=== PATIENT | male | born 1930 | race Caucasian/White ===

== ENCOUNTER 2017-06-01 19:38 | Inpatient (IN) | payer MEDICARE ==
[~2017-06-01] VITALS: Ht 165.1 cm; Wt 74.9 kg
--- NOTE | 2017-06-02 00:26 | NUR ---
PT ADMITTED TO ROOM 120 FROM ED @ 2346. ARRIVED VIA STRETCHER, UNABLE TO ASSIST STAFF IN MOVING FROM STRECHER TO BED. EXPRESSIVE APHASIA, UNABLE TO DETERMINE IF HE HEARS STAFF, OR UNDERSTANDS. WHEN ASKED TO STICK HIS TONGUE OUT, HE DOESN'T, BUT SMILES AND ASKS STAFF A QUESTION THAT ISN'T RELEVANT TO THE CURRENT CONVERSATION. THE SMILE IS EVEN. WHEN ASKING PT TO RIDING COACH HAND, HE WILL SL RIDING COACH WITH THE LT HAND, WHILE THE RIGHT DOESN'T ATTMEPT. ABLE TO HOLD THE LT ARM AND LEG FOR 3 SEC, THIS NURSE RAISED BOTH AND TOLD HIM TO HOLD THEM UP AND HE DID. THE RIGHT SIDE, HE WAS UNABLE TO LIFT R ARM ON COMMAND, AND EVEN WITH THIS NURSE RAISING, AND LETTING GO THE ARM QUICKLY COMES DOWN WITH NO CONTROL. THE RIGHT LEG HAS BETTER CONTROL, DID NOT COME TO THE BED QUICK THE ARM. PT ACTUALLY LIFTED THE RIGHT LEG WHEN THIS NURSE PUT BOOTIES UNDER HIS HEELS. NOTED NO BRUSING ON BACK SIDE, TOE NAILS THICK AND IN NEED OF TRIM. IV IN LAC INFUSING LR @ 100. ASSESSING LUNG SOUNDS, PT DID NOT TAKE DEEP BREATHS BUT WHEN HE TOOK A BREATH, LUNG SOUNDS CLEAR. BOWELS HYPOACTIVE, UNABLE TO DETERMINE LAST BM. WHILE IN THE ED, THE RN-JOLIE REPORTED PRIOR TO PT ARRIVING, THAT THEY STRAIGHT CATH PT FOR 500, WELL ONE INCONT URINE. WILL USE THE BED ALARM IT IS UNKNOWN IF PT WILL ATTEMPT TO GET UP WITHOUT STAFF PRESENT.
--- NOTE | 2017-06-02 03:30 | NUR ---
PT ATTEMPTED TO TOUCH MY HAND WITH HIS RIGHT HAND, ABLE TO LIFT ARM BUT WASN'T ABLE TO TOUCH HAND. LIFTED RIGHT FOOT OFF BED SO THE HEEL PROTECTOR COULD BE PUT BACK ON. SPEECH REMAINS UNCHANGED, TALKS IN SENTENCE BUT NOT RELEVANT OR ABLE ANSWER QUESTIONS OR FOLLOW COMMANDS. NO FACIAL DROOP NOTED.
[2017-06-02] MEDS ORDERED: OMEPRAZOLE20 MG PO (04:36)
[2017-06-02] MEDS ORDERED: METOPROLOL TAR100 MG PO (04:39)
[2017-06-02] MEDS ORDERED: COUMADIN5 MG PO (04:39)
[2017-06-02] MEDS ORDERED: PAROXETINE HCL20 MG PO (04:40)
[2017-06-02] MEDS ORDERED: SIMVASTATIN20 MG PO (04:40)
[2017-06-02] MEDS ORDERED: OXYBUTYNIN CHLOR5 M1 PO (04:42)
[2017-06-02] MEDS ORDERED: NORVASC5 MG PO (04:43)
--- NOTE | 2017-06-02 04:44 | NUR ---
PT WITH EYES CLOSED, RESP EVEN AND UNLABORED. HAS BEEN THIS WAY FOR THE PAST 1.5 HOURS. IV CONTINUES INFUSING PER ORDER.
--- NOTE | 2017-06-02 06:46 | NUR ---
NOTIFIED DR BALTAZAR OF PT NOT VOIDING, BLADDER SCAN FOR 360, THAT HE SLEPT AFTER ADMISSION. "GIVE HIM MORE TIME". PT CURRENTLY WITH EYES CLOSED, RESP EVEN AND UNLABORED.
--- NOTE | 2017-06-02 09:00 | NUR ---
PATIENT HAS BEEN RESTING QUIETLY. INCONTINENT URINE AND ATTENDS CHANGED AND PERICARE DONE. IV FLUSHES WELL AND INFUSING. BOWEL TONES ACTIVEX4, LUNGS CLEAR, GENERALIZED WEAKNESS, BUT MORE SO FROM PREVIOUS STROKE, RIGHT SIDE ALREADY HAS DEFICITS. PATIENT SOMETIMES NONE VERBAL, OTHER TIMES WORD SALAD OR HE JUST SAYS "YEAH." DOES NOT FOLLOW COMMANDS AT THIS TIME.
--- NOTE | 2017-06-02 11:21 | NUR ---
THIS INSPECTOR EYEGLASS AND RN CHANGED PATIENT INTO CLEAN ATTENDS. PATIENT IS VERY QUITE. PATIENT NOW SITTING UP IN BED WATCHING TV. CALL LIGHT WITHIN REACH. NO OTHER NEEDS AT THIS TIME.
[2017-06-02] MEDS ORDERED: METOPROLOL SUC100 MG PO (11:28)
--- NOTE | 2017-06-02 13:05 | NUR ---
MED REC COMPLETE WITH SAFEWAY REFILL HISTORY AND DR BARTON CONFIRMATION OF WARFARIN DOSE. NO KNOWN LAST INR.
--- NOTE | 2017-06-02 13:15 | NUR ---
PATIENT SITTING UP IN BED. RN IN ROOM. RN STATES THAT HIM AND OTHER RN CHANGED PATIENT INTO CLEAN ATTENDS. PATIENT NOW RESTING IN BED WATCHING TV. CALL LIGHT WITHIN REACH. NO OTHER NEEDS AT THIS TIME. THIS PROGRAM PROJECT ANALYST AND RN REPOSITIONED PATIENT ONTO RIGHT SIDE.
--- NOTE | 2017-06-02 18:11 | NUR ---
BEDSIDE NURSING SWALLOW EVALUATION DONE. PATIENT DOES WELL WITH THIN LIQUIDS, NO COUGHING, A BIT OF HESITATION BEFORE SWALLOW. DR. BALTAZAR NOTIFIED AND PATIENT AVANCED TO CLEAR LIQUID DIET.
--- NOTE | 2017-06-02 18:19 | NUR ---
THIS BUSINESS STRATEGIST AND BUSINESS STRATEGIST ZANA ASSISTED PATIENT INTO CLEAN ATTENDS. PATIENT NOW RESTING IN BED. PATIENT HAS A VISITOR IN ROOM. CALL LIGHT WITHIN REACH. NO OTHER NEEDS AT THIS TIME.
--- NOTE | 2017-06-02 19:00 | NUR ---
PATIENT MORE RESPONSIVE IN THE AFTERNOON. WHEN TURNING TO CHANGE PATIENT ATTENDS DUE TO INCONTINENCE PATIENT IS NOW ASSISTING WHEN GIVEN INSTRUCTIONS WHERE THIS AM HE WAS NOT. PATIENT SEEN BY OT AND PT TODAY PATIENT UNABLE TO STAND. PATIENT NPO IN AM. PATIENT HAS HAD PLENTY OF URINE OUTPUT BUT REMAINS INCONTINENT HE CANNOT CALL FOR ASSISTANCE. BED ALARM ON, BUT HAVE NOT SEEN PATIENT TRY TO GET OUT OF BED. PATIENT NOW ON A CLEAR LIQUID DIET.
--- NOTE | 2017-06-02 19:18 | NUR ---
RECEIVED REPORT FROM RN, PATIENT IS RESTING COMFORTABLY IN BED, BREATHING IS EVEN AND UNLABORED. FLACC SCORE OF 0. CALL LIGHT WITHIN REACH.
--- NOTE | 2017-06-02 21:44 | NUR ---
PATIENT RESTING IN BED, BREATHING IS EVEN AND UNLABORED. ASSESSMENT DONE. FLACC SCORE OF 0. CALL LIGHT WITHIN REACH, BED ALARM ON.
--- NOTE | 2017-06-02 22:42 | NUR ---
PATIENT RESTING IN BED, BREATHING IS EVEN AND UNLABORED. UNABLE TO ASSESS FOR NEEDS DUE TO INAPPROPRIATE VERBAL RESPONSES, FLACC SCORE OF 0. HEART RATE IS 66 ON TELE. CALL LIGHT WITHIN REACH, BED ALARM ON.
--- NOTE | 2017-06-02 23:11 | NUR ---
PATIENT REPOSITIONED AND LINENS CHANGED DUE TO INCONTINENCE OF URINE. ONCE PATIENT REPOSITIONED, PATIENT STATES "OH THAT'S NICE." CALL LIGHT WITHIN REACH, BED ALARM ON.
--- NOTE | 2017-06-03 00:07 | NUR ---
CHUCK HOWARD AND I CHANGED PATIENT'S GOWN AND BED LINEN SOAK WITH VOIDINGS.
--- NOTE | 2017-06-03 03:11 | NUR ---
PATIENT RESTING IN BED, BREATHING IS EVEN AND UNLABORED. CALL LIGHT WITHIN REACH.
--- NOTE | 2017-06-03 03:33 | NUR ---
PT WITH EYES CLOSED, RESP EVEN AND UNLABORED. HUNG NEW BAG OF IV FLUIDS AT THIS TIME.
--- NOTE | 2017-06-03 03:36 | NUR ---
CHUCK MILLER AND I CHANGED PATIENT'S ATTENDS AND REPOSITIONED. BED ALARM ON. CALL LIGHT WITHIN REACH.
--- NOTE | 2017-06-03 06:47 | NUR ---
PATIENT RESTING IN BED, BREATHING IS EVEN AND UNLABORED. REPOSITIONED, ATTENDS CHANGED. CALL LIGHT WITHIN REACH, BED ALARM ON.
--- NOTE | 2017-06-03 07:33 | EKG ---
[facility] [address] [facility] [place] [address] N[address] and T wave abnormality Prolonged QT Abnormal ECG No previous ECGs available Confirmed by NICOLE BALTAZAR MD ([id number]) on 06/03/2017 7:33:21 AM Electronically Signed By: NICOLE BALTAZAR MD 06/03/17 0733 PATIENT NAME: NICOLASA CHRISTOPHER Electrocardiogram DATE OF : 32 PHYSICIAN: NICOLE BALTAZAR MD REPORT #: [id number] REPORT IS CONFIDENTIAL AND NOT TO BE RELEASED WITHOUT AUTHORIZATION
--- NOTE | 2017-06-03 08:05 | NUR ---
PATIENT RESTING IN BED. WASHCLOTH FOR FACE. THIS SIEBEL ADMINISTRATOR SET UP BREAKFAST FOR PATIENT. PATIENT SEEMS MORE TALKATIVE AND NOT JUST ANSWERING YES OR NO. CALL LIGHT WITHIN REACH. NO OTHER NEEDS AT THIS TIME.
--- NOTE | 2017-06-03 10:01 | NUR ---
PT WAS UPRIGHT IN BED WITH OT MARCELINO AND NSG STUDENT PRESENT UPON ST ARRIVAL. HIS BREAKFAST TRAY (CLEAR LIQUIDS ONLY) ORDERED WAS BEING HELD UNTIL SWALLOW ASSESSMENT COULD BE COMPLETED. NICOLASA PRESENTED NONVERBAL AT TIME OF ASSESMENT BUT REPROTEDLY HAS BEEN SPEAKING SINGLE WORDS OCCASIONALLY. PT REFUSED ALL ASSESMENT ATTEMPTS AND REFUSED ALL PO TRIALS: WATER, MILK, SODA, JUICE, TEA, PUDDING, APPLESAUCE. HE ALSO REFUSED ALL ATTEMPTS FOR ORAL MECH EXAM OR COG OR LANGUAGE EVAL. ASSESSMENT TO BE ATTEMPTED AT ANOTHER TIME.
--- NOTE | 2017-06-03 10:04 | NUR ---
THIS BANK COMPLIANCE OFFICER AND STUDENT NURSE CHANGED PATIENT INTO CLEAN ATTENDS. PATIENT REFUSED BREAKFAST. STUDENT NURSE NOTICED IV ON LEFT ARM COMING OFF. RN CHANDAN NOTIFIED. CALL LIGHT WITHIN REACH. NO OTHER NEEDS AT THIS TIME.
--- NOTE | 2017-06-03 10:05 | NUR ---
PATIENT STILL ASLEEP IN THE AM. PATIENT STILL ALMOST COMPLETELY NONVERBAL AT THIS TIME. HE WILL SAY YEAH AT TIMES. TURNED Q2/HRS. PATIENT REMAINS INCONTINENT OF URINE AND OF COURSE HE CANNOT CALL SO ATTENDS CHECK FREQUENTLY. PERIAREA IS REDDEND DUE TO INCONTINENCE AND BARRIER CREAM IS BEING APPLIED. COXXYX IS REDDEND BUT BLANCHABLE. DRESSING CAME LOOSE FROM LAC IV AND IV DC'D AND NEW IV STARTED IN THE RAC.
--- NOTE | 2017-06-03 10:41 | NUR ---
PT TOOK ASPIRIN CRUSHED IN APPLESAUCE. SL FOR SHOWER WITH WENDIE SANCHEZ AND [facility] STUDENT.
--- NOTE | 2017-06-03 11:55 | NUR ---
THIS ASSISTANT DIRECTOR OF FINANCIAL AID AND STUDENT NURSE SET UP SHOWER FOR PATIENT AND ASSISTED PATIENT INTO SHOWER. TRANSFERRED PATIENT 2 PERSON HEIDI INTO SHOWER CHAIR. PATIENT ABLE TO SIT UP AND SIT FORWARD WHEN ASKED. 2 PERSON ASSIST SHOWER AND THIS ASSISTANT DIRECTOR OF FINANCIAL AID SHAVED PATIENTS FACE. STUDENT NURSE CHANGED LINEN. PATIENT IS NOW SITTING UP IN BED EATING LUNCH. PATIENT TALKING AND ANSWERING QUESTIONS. CLEAN ATTENDS ON PATIENT AND CLEAN GOWN. CALL LIGHT WITHIN REACH. NO OTHER NEEDS AT THIS TIME.
--- NOTE | 2017-06-03 13:17 | NUR ---
THIS THERAPY ASSISTANT AND STUDENT NURSE CHANGED PATIENT INTO CLEAN ATTENDS. PATIENT ALSO REPOSITIONED ONTO LEFT SIDE. PATIENT SITTING UP BED WATCHING TV. STUDENT NURSE STATES SHE GOT PATIENT FRESH WATER AND APPLE JUICE. CALL LIGHT WITHIN REACH. NO OTHER NEEDS AT THIS TIME.
--- NOTE | 2017-06-03 16:50 | NUR ---
THIS OUTSIDE CONTRACTOR SALES AND RN ANNIA CHANGED PATIENT INTO CLEAN ATTENDS. PATIENT REPOSITIONED ONTO LEFT SIDE. CALL LIGHT WITHIN REACH. NO OTHER NEEDS AT THIS TIME.
--- NOTE | 2017-06-03 16:55 | NUR ---
PATIENT REMAINS HAVING UNINTELLIGABLE SPEECH MUCH OF THE TIME. PATIENT DOES ANSWER YES OR NO APPROPRIATELY MOST OF THE TIME OR WILL NOD OR SHAKE HIS HEAD TO YES OR NO QUESTIONS. LAC IV DC'D TODAY DUE TO DRESSING COMING OFF AND RAC IV STARTED AND IV FLUIDS CONTINUE AT 100MLS/HR. HEIDI USED TO PLACE PATIENT IN WHEELED SHOWER CHAIR TODAY AND PATIENT WAS SHOWERED. PATIENT TURNED Q2 HRS AND MONITORED CLOSELY FOR INCONTINENCE. BARRIER CREAM APPLIED TO PERIAREA AND COCCYX THROUGHOUT THE DAY AND PERIAREA AND COCCYX NOT RED THIS AM. PATIENT STARTED ON PO COUMADIN TODAY. PATIENT SPIT THEM OUT AT FIRST BUT FINAL TOOK THEM WITH SOME PUDDING. MEDS CAN BE CRUSHED IF NEED BE PER . PATIENT ADVANCED TO A FULL LIQUID DIET AND IS EATING WELL AND TAKING PO FLUIDS WELL. PATIENT DID GET UPSET TODAY WHEN DAUGHTER WAS TALKING TO RESIDENT CARE TECHNICIAN ABOUT EXPENSES FOR [place], BUT RETURN BACK TO A CALM MOOD WHEN RESIDENT CARE TECHNICIAN LEFT. PATIENT MUCH MORE CONVERSIVE WITH HIS DAUGHTER AND DAUGHTERS BOYFRIEND EVEN THOUGH WHAT HE IS SAYING DOESN'T USUALLY MAKE ANY SENSE.
--- NOTE | 2017-06-03 18:58 | NUR ---
THIS GROUND CREWMAN AND RN PARIS CHANGED PATIENT INTO CLEAN ATTENDS. BARRIER CREAM APPLIED TO BOTTOM. CALL LIGHT WITHIN REACH. NO OTHER NEEDS AT THIS TIME.
--- NOTE | 2017-06-03 19:20 | NUR ---
RECEIVED REPORT FROM RN. PATIENT RESTING COMFORTABLY IN BED, BREATHING IS EVEN AND UNLABORED, FLACC SCORE OF 0. CALL LIGHT WITHIN REACH, BED ALARM ON.
--- NOTE | 2017-06-03 22:20 | NUR ---
PATIENT RESTING IN BED, BREATHING IS EVEN AND UNLABORED. DENIES PAIN. FLACC SCORE OF 0. CALL LIGHT WITHIN REACH, BED ALARM ON.
--- NOTE | 2017-06-03 23:55 | NUR ---
CALLED DR. BALTAZAR TO REPORT THAT PT HAD 20 BEATS OF V-TACH WITH A RATE OF 100, QRS WAS WIDE: 0.2, PT DENIED ANY DISCOMFORT WHEN CHECKED ON BY ENTERTAINMENT REPORTER. PT DID NOT HAVE CHEMISTRY LABS THIS MORNING, BUT ON 06/02 POTASSIUM WAS 3.3. ALSO CLARIFIED CODE STATUS WITH HER, RECEIVED ORDERS TO ADD DNR/DNI TO PT'S CHART.
--- NOTE | 2017-06-04 00:22 | NUR ---
PATIENT RESTING IN BED, BREATHING IS EVEN AND UNLABORED. CALL LIGHT WITHIN REACH, BED ALARM ON.
--- NOTE | 2017-06-04 00:56 | NUR ---
PATIENT REPOSITIONED FOR COMFORT, ATTENDS CHANGED. NOW RESTING COMFORTABLY AGAIN. BREATHING IS EVEN AND UNLABORED. CALL LIGHT WITHIN REACH, BED ALARM ON.
--- NOTE | 2017-06-04 03:42 | NUR ---
PATIENT RESTING COMFORTABLY IN BED, BREATHING IS EVEN AND UNLABORED. FLACC SCORE OF 0. CALL LIGHT WITHIN REACH, BED ALARM ON.
--- NOTE | 2017-06-04 06:40 | NUR ---
PATIENT RESTING IN BED, BREATHING IS EVEN AND UNLABORED. CALL LIGHT WITHIN REACH, BED ALARM ON. FLACC SCORE OF 0.
--- NOTE | 2017-06-04 09:23 | NUR ---
PT WAS INCONTINENT OF URINE, PT WAS CHANGED AND REPOSITIONED HIGHER IN BED. PT DID NOT NEED ANYTHING ELSE AT THE MOMENT
[2017-06-04] MEDS ORDERED: ASPIRIN325 MG PO (10:55)
--- NOTE | 2017-06-04 13:30 | NUR ---
PT SITTING IN CHAIR, JUST STARING QUIETLY. HE WELCOMED ME INTO HIS RM, RESPONSES TO MY QUESTIONS SLOW AND DELIBERATE. HE DID MENTIONED THAT MEALS SERE "OK". FRIENDLY, SHOOK MY HAND AND HELD ON. HE SEEMED TO ENJOY THE COMPANY. EXTENDED A BLESSING PT THANKED ME, WILL FOLLOW NEEDED
--- NOTE | 2017-06-04 14:59 | NUR ---
PT WAS INCONTINENT OF URINE AND STOOL WAS CHANGED AND DRESSED AND WAS TRANSFERED TO A WHEELCHAIR AND WAS DISCHARGED TO [facility]
--- NOTE | 2017-06-04 16:11 | NUR ---
POTASSIUM LEVEL 2.8 L, NO REPLACEMENTS PROVIDED WHILE PATIENT ADMITTED. DISCUSSED WITH DR. DILLON WHO STATES " POTASSIUM IS LOW BECAUSE PATIENT WAS NOT EATING, NOW THAT HE IS EATING IT SHOULD GO UP TO NORMAL RANGE". CALL TO PATRICIA AND JORGE LUIS GROVER RN, WHO VERBALIZED UNDERSTANDING.
== END 2017-06-04 14:45 | DRG 65 ==
LOC: ED 19:38 → MS 23:16
PROVIDERS: ADMIT Internal Medicine
DX: I63.9 Cerebral infarction, unspecified (principal); M62.82 Rhabdomyolysis; I69.954 Hemiplegia and hemiparesis following unspecified cerebrovascular disease affecting left non-dominant side; R47.01 Aphasia; R29.717 NIHSS score 17; I48.2 Chronic atrial fibrillation; I69.998 Other sequelae following unspecified cerebrovascular disease; M21.372 Foot drop, left foot; Z66 Do not resuscitate; Z95.3 Presence of xenogenic heart valve; Z79.01 Long term (current) use of anticoagulants; Z79.899 Other long term (current) drug therapy
CPT/HCPCS: 36415; 70450; 71045; 80048; 80053; 82550; 83735; 83874; 84484; 85025; 85610; 85730; 92523; 93005; 93010; 93306; 94762; 97116; 97140; 97163; 97165; 97530; 97535; J1650; J7030

== ENCOUNTER 2018-02-13 18:57 | Observation (INO) | payer MEDICARE ==
[~2018-02-13] VITALS: Ht 165.1 cm; Wt 77.0 kg
[~2018-02-13 18:57] MED LIST: ASPIRIN325 MG PO; COUMADIN5 MG PO; METOPROLOL SUC100 MG PO; METOPROLOL TAR100 MG PO; NORVASC5 MG PO; OMEPRAZOLE20 MG PO; OXYBUTYNIN CHLOR5 M1 PO; PAROXETINE HCL20 MG PO; SIMVASTATIN20 MG PO
--- OUTSIDE RECORDS SUMMARY | 2018-02-13 19:00 | XMS ---
PreManage Notification: NICOLASA CHRISTOPHER Security Boarding [employer] Cook Events No recent Security Events currently on file CRITERIA MET - [facility] - Has Care Guidelines - [facility] PHONE: Unknown TEJAS BROWN Primary Care [facility] [place] PHONE: Unknown BILLY SPEAR Primary Care Current PHONE: Unknown Guidelines Source: [facility] Guidelines Date: 10/08/2017 Care Coordination: PATIENT IS UNDER SERVICES AT [facility] DEPARTMENT.\T\nbsp; IF PATIENT IS SEEN IN THE ED, PLEASE NOTIFY THEM AT [phone].\T\nbsp; IF AFTER HOURS OR ON WEEKENDS PLEASE CALL SWITCHBOARD AT [phone] AND HAVE ON-CALL RN NOTIFIED. [place] VISIT COUNT (12 MO.) 2 [facility] TOTAL 2 NOTE: Visits indicate total known visits. ED/UCC VISIT TRACKING (12 MO.) 02/13/2018 18:57 [facility] [place] TYPE: Emergency COMPLAINT: - WEAKNESS 06/01/2017 19:[address] [facility] [place] TYPE: Emergency COMPLAINT: - POSS STROKE INPATIENT VISIT TRACKING (12 MO.) No inpatient visits to display in this time frame [email or web address]
[2018-02-13] MEDS ORDERED: XARELTO10 MG PO ×2 (19:13→19:14)
[2018-02-13] MEDS ORDERED: ANIMAL CHEWS1 EACH PO (21:41)
[2018-02-13] MEDS ORDERED: PROBIOTIC1 EAC7 PO (21:41)
[2018-02-13] MEDS ORDERED: CALCIUM500 M1 PO (21:42)
--- NOTE | 2018-02-13 22:12 | NUR ---
2130 - Pt admitted to room 122 from ED via stretcher. oriented to room. Quiet, able to answer yes/no questions better, standing rock. answer to admit questions obtained from daughter. Cooperative. on room air.
--- NOTE | 2018-02-13 22:45 | NUR ---
PATIENT IS RESTING SOUNDLY IN THE BED. HE RESPONDS TO HIS NAME AND WILL ANSWER YES/NO QUESTIONS OCCATIONALLY. PATIENT DOES NOT FOLLOW COMMANDS TO TAKE DEEP BREATHS OR REPORT PAIN/DISCOMFORT. LUNG SOUND ARE CORSE IN THE BASES, BREATHING SHALLOW. O2 SAT WNL ON ROOM AIR. ABD IS FIRM, BOWEL SOUNDS HYPOACTIVE. DOES NOT APPEAR TENDER. PATIENT'S ATTENDS SATURATED WITH URINE, CNAS ASSIST IN CHANGING ATTEND AND APPLYING BARRIER CREAM. PATIENT'S BUTTOCKS IS RED BUT BLANCHABLE. SKIN IS GROSSLY INTACT. ABRASION NOTED ON PATIENT'S NOSE, WHICH IS COVERED WITH A BANDAID. IV SITE WNL, IV FLUIDS INFUSING. PATIENT'S EXTREMITIES ARE VERY STIFF AND PATIENT DOES NOT FOLLOW COMMANDS TO MOVE THEM OR BEND WHEN NEEDED. WHEN MOVED PATIENT DOES NOT APPEAR PAINFUL. PATIENT TURNED TO RIGHT SIDE. HOB ELEVATED. BED ALARM ON. CALL LIGHT IN REACH.
--- NOTE | 2018-02-14 00:45 | NUR ---
PATIENT'S ATTENDS SATURATED WITH URINE. VICENTE CARE PERFORMED, BARRIER CREAM APPLIED. PATIENT TURNED TO LEFT SIDE. HOB ELEVATED. OFFERED PATIENT WATER, WHICH HE WAS ABLE TO DRINK 150MLS WITH ASSISTANCE. BED ALARM ON. CALL LIGHT IN REACH. PATIENT APPEARS COMFORTABLE.
--- NOTE | 2018-02-14 01:00 | NUR ---
PATIENT'S ATTENDS HEAVILY SATURATED. VICENTE CARE PERFORMED. BARRIER CREAM APPLIED. PATIENT TURNED TO LEFT SIDE. HOB ELEVATED. PATIENT DRANK 3-4 SIPS OF WATER WITH ASSISTANCE. IV FLUIDS PER ORDER, SITE WNL. CALL LIGHT IN REACH. BED ALARM ON.
--- NOTE | 2018-02-14 03:00 | NUR ---
PATIENT ATTENDS WET WITH MODERATE AMOUNT OF URINE. VICENTE CARE PERFORMED. BARRIER CREAM APPLIED. PATIENT TURNED TO LEFT SIDE. SIPS OF WATER PROVIDED. IV FLUIDS PER ORDER, SITE WNL. PATIENT SPEAKING MORE, BUT MOSTLY UNABLE TO UNDERSTAND. BANDAID ON PATIENT'S NOSE REMOVED. WOUND CLEANED, OB SITE APPLIED. BED ALARM ON. CALL LIGHT IN REACH.
--- NOTE | 2018-02-14 05:30 | NUR ---
CNAS ASSISTED TO CHANGE PATIENT'S ATTENDS AND REPOSITION PATIENT.
--- NOTE | 2018-02-14 06:16 | NUR ---
PATIENT SLEPT SINCE ARRIVAL. OCCATIONAL GARBLED VERBAL RESPONCES, CAN ANSWER YES/NO QUESTIONS. PATIENT HAS NOT BEEN OUT OF BED, EXTREMITIES ARE VERY STIFF. TURN Q2H, RED AREA ON BUTTOCKS. URINE OUTPUT QS, INCONTINENT AT BASELINE. IV FLUIDS PER ORDER. PATIENT TOLERATING SIPS OF WATER WITH ASSISTANCE. PATIENT REQUIRES FULL FEEDING ASSIST AT BASELINE. 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 TOLERATING ROOM AIR. BED ALARM. PATIENT HAS NOT ATTEMPTED TO GET OUT OF BED.
--- NOTE | 2018-02-14 06:45 | NUR ---
ORANGE PICKING SUPERVISOR STARTED NEW BAG OF FLUIDS. IV SITE WNL. PATIENT APPEARS TO BE SLEEPING. RR 18.
--- NOTE | 2018-02-14 08:22 | NUR ---
BEDSIDE REPORT RECEIVED FROM SEBAS WOODS. ALL QUESTIONS ANSWERED. PATIENT HAS VERY GARBLED SPEECH. UNINTELLIGABLE. LR INFUSING AT 125. ENSURE PROVIDED FOR BREAKFAST. PLAN TO TURN PATIENT SIDE TO SIDE IN BED TODAY.
--- NOTE | 2018-02-14 08:32 | NUR ---
PATIENT SITTING UP IN BED, RN IN ROOM. CHOCOLATE ENSURE FOR BREASKFAST. CALL LIGHT IN REACH. NO FURTHER NEEDS AT THIS TIME.
--- NOTE | 2018-02-14 09:34 | NUR ---
PATIENT IN CHAIR WATCHING TV. FRESH WATER GIVEN. LINENS CHANGED. CALL LIGHT IN REACH. NO FURTHER NEEDS AT THIS TIME.
--- NOTE | 2018-02-14 10:45 | NUR ---
PT WORKED WITH PHYSICAL THERAPY THIS MORNING. BACK TO RECLINER NOW. LUNCH ORDERED. CHAIR ALARM IN PLACE. NO NEEDS NOW. CALL LIGHT WITHIN REACH.
--- NOTE | 2018-02-14 11:29 | NUR ---
pt working with physical therapist again. going to test strength climbing stairs.
--- NOTE | 2018-02-14 13:34 | NUR ---
DAUGHTER CONCERNED ABOUT PATIENT HAVING LONGER BABBLING EPISODE. VSS. PATIENT FOUND TO BE PUTTING FORK IN MILK CARTON AND ATTEMPTING TO SPEAK TO STAFF/DAUGHTER. NO OBVIOUS CHANGE IN SPEECH FROM INITIAL ASSESSMENT. PATIENT MORE AWAKE THIS AFTERNOON. STRENGTH SAME THIS MORNING OR BETTER. PATIENT KNOWS WHO DAUGHTER IS. DR RIOS CALLED TO ASSESS PATIENT.
--- NOTE | 2018-02-14 14:22 | EKG ---
[facility] [address] [facility] [place] [address] Signed Atrial fibrillation with slow ventricular response Possible Inferior infarct , age undetermined ST \T\ T wave abnormality, consider lateral ischemia Abnormal ECG When compared with ECG of 01-JUN-2017 19:51, Borderline criteria for Inferior infarct are now present T wave inversion now evident in Lateral leads QT has shortened Confirmed by FAUSTINO RIOS DO ([id number]) on 02/14/2018 2:21:58 PM Electronically Signed By: FAUSTINO RIOS DO 02/14/18 1422 PATIENT NAME: NICOLASA CHRISTOPHER Electrocardiogram DATE OF : 32 PHYSICIAN: FAUSTINO RIOS DO REPORT #: [id number] REPORT IS CONFIDENTIAL AND NOT TO BE RELEASED WITHOUT AUTHORIZATION
--- NOTE | 2018-02-14 14:50 | NUR ---
PATIENT UP FROM CHAIR TO BED. DEPNDS CHANGED. VICENTE CARE DONE. CALL LIGHT IN REACH. FRESH WATER GIVEN. NO FURTHER NEEDS AT THIS TIME. BED ALARM ON.
--- NOTE | 2018-02-14 15:29 | NUR ---
PT IN BED NOW. HAD LARGE HARD BM REPORTED BY FOOD PRESERVATION SCIENTIST AND JIMENEZ RN. MAY CONTINUE TO HAVE BM THIS EVENING. PATIENT VERY TALKATIVE. UNINTELLIGABLE SPEECH. INCOMPREHENSIBLE. IVF INFUSING. K RIDER INFUSED.
--- NOTE | 2018-02-14 17:57 | NUR ---
PATIENT MORE ALERT AND AWAKE TODAY. RECOGNIZED DAUGHTER BUT OTHERWISE DISORIENTED. NEEDS HELP WITH SET UP FOR MEALS AND SOME SUPERVISION WITH EATING. UP TO CHAIR 1PA FWW. LR @ 125. K RIDER 20MEQ TODAY FOR POTASSIUM 3.1. ROCEPHIN. LIKELY HOME WITH FAMILY TOMORROW.
--- NOTE | 2018-02-14 18:55 | NUR ---
PATIENT IN BED WATCHING TV. FRESH WATER GIVEN. CALL LIGHT IN REACH. NO FURTHER NEEDS AT THIS TIME.
--- NOTE | 2018-02-14 19:20 | NUR ---
SHIFT REPORT RECIEVED. PATIENT APPEARS COMFORTABLE. WATCHING TV. IV FLUIDS PER ORDER, SITE WNL. ATTENDS DRY. CALL LIGHT IN REACH. BED ALARM ON.
--- NOTE | 2018-02-14 20:53 | NUR ---
CHUCK MULLEN TOOK HR BY APICAL AND MANUAL BP.
--- NOTE | 2018-02-14 21:00 | NUR ---
EVENING MEDS GIVEN PER ORDER. INSURANCE BROKER CONCERNED ABOUT ELEVATED HR READING ON VITAL MACHINE. APICAL PULSE 54, MANUAL BP DONE AND RECORDED. PLACED PATIENT ON CONTINUOUS PULSE OX TO MONITOR HR HE HAS BEEN BRADYCARDIC TODAY. PATIENT IS ABLE TO FOLLOW SIMPLE COMMANDS. LUNGS ARE CLEAR, O2 WNL. ABD IS MILDLY DISTENDED, DOESN'T APPEAR TENDER. BOWEL SOUNDS ARE ACTIVE. ATTENDS RECENTLY CHNAGED BY INSURANCE BROKER AND BARRIER CREAM APPLIED. POSITIONED PATIENT ONTO LEFT SIDE. IV FLUIDS PER ORDER, SITE WNL. ABRASION ON NOSE IS COVERED WITH AN OB SITE. PATIENT FEET SHOW SIGNS OF POOR CIRCULATION, ARSENIO COLOR AND COOL. CAP REFILL WNL BILATERALLY. PATIENT APPEARS COMFORTABLE. CALL LIGHT IN REACH. BED ALARM ON.
--- NOTE | 2018-02-14 23:00 | NUR ---
STAFF ALERTED TO PATIENT ATTEMPTING TO EXIT HIS BED BY BED ALARM. PATIENT UNABLE TO COMMUNICATE HIS NEEDS. ASSISTED PATIENT INTO THE BATHROOM WHERE HE HAD A LARGE BOWEL MOVEMENT, WITH TRACE AMOUNTS OF BRIGHT RED BLOOD. APPEARS TO BE FROM HEMORROIDS. WILL NOTIFY MD. PATIENT THEN REFUSED TO RETURN TO BED. HE APPEARS MUCH MORE ALERT BUT CONTINUES TO BE CONFUSED. HE IS ABLE TO SAY SMALL PHRASES THAT ARE CLEAR BUT NOT ORIENTED, SUCH "I CAN'T GO TO BED I HAVE WORK". UNABLE TO REORIENT PATIENT. IRRIGATIONIST ASSISTED PATIENT TO HIS RECLINER AND THEN OUT TO THE NURSES STATION TO PROVIDE A SAFE ENVIRONMENT. PATIENT REQUIRES 1:1 AT THIS TIME.
--- NOTE | 2018-02-15 00:46 | NUR ---
PATIENT BACK TO BED ABOUT 0015, HAS BEEN FREQUENTLY ATTEMPTING TO EXIT HIS BED. ENCOURAGED PATIENT TO SLEEP. POSITIONED FOR COMFORT. PROVIDED WARM BLANKET. FREQUENT REORIENTATION. BED ALARM ACTIVE.
--- NOTE | 2018-02-15 02:45 | NUR ---
PATIENT SLEEPING SOUNDLY. RR18. IV FLUIDS PER ORDER, SITE WNL. BED ALARM ON.
--- NOTE | 2018-02-15 04:45 | NUR ---
PATIENT APPEARS TO BE SLEEPING SOUNDLY. RR 16. BED ALARM ON. CALL LIGHT IN REACH.
--- NOTE | 2018-02-15 05:43 | NUR ---
PATIENT WAS MUCH MORE ALERT AND WAS ABLE TO SPEAK CLEARLY MANY TIMES. HOWEVER HE CONTINUES TO BE CONFUSED. REQUIRED 1:1 CARE FOR A SHORT TIME DURING THE NIGHT. HAS SLEPT WELL THE SECOND HALF OF THE SHIFT. IV FLUIDS PER ORDER, OUTPUT QS. PATIENT HAS LARGE BM LAST NIGHT. 1PA W/FWW. BED/CHAIR ALARM NEEDED. REQUIRES SOME FEED ASSIST.
--- NOTE | 2018-02-15 08:45 | NUR ---
PT SITTING UP IN CHAIR EATING BREAKFAST. DOING A GOOD JOB OF IT UNAIDED. ANSWERS QUESTIONS OF YES\NO EASILY. LUNGS CLEAR. DENIES CONCERNS. IVF WNL.
--- NOTE | 2018-02-15 09:34 | NUR ---
PATIENT UP TO CHAIR, 2 PERSON ASSIST FWW. LINENS CHANGED. FREASH WATER GIVEN. DEPENDS CHANGED. CALL LIGHT IN REACH. NO FURTHER NEEDS AT THIS TIME.
--- NOTE | 2018-02-15 09:43 | NUR ---
PT STOOD WITH FWW AND 2 PA TO CHANGE DEPENDS, WET. GIVEN WARM BLANKET.
[2018-02-15] MEDS ORDERED: METOPROLOL SUC100 MG PO ×4 (11:08→11:21)
[2018-02-15] MEDS ORDERED: METFORMIN HCL500 MG PO (11:10)
[2018-02-15] MEDS ORDERED: CEPHALEXIN500 MG PO (11:10)
[2018-02-15] MEDS ORDERED: BLOOD GLUCOSE1 EAC1 MISC (11:11)
[2018-02-15] MEDS ORDERED: GLUCOSE TEST S1 EACH MISC (11:12)
[2018-02-15] MEDS ORDERED: BLOOD LANCETS1 EACH SUB-Q (11:12)
--- NOTE | 2018-02-15 12:22 | NUR ---
PT ASSISTED TO GET DRESSED AND SET UP WITH LUNCH. IV REMOVED. DAUGHTER CALLED AND IS ON HER WAY UP TO GET HIM.
--- NOTE | 2018-02-15 13:10 | NUR ---
SPOKE WITH PATIENT AND DAUGHTER CHARLY IN ROOM. PATIENT LIVES WITH DAUGHTER, SHE IS MAIN CAREGIVER. DISCUSSED HOME HEALTH ORDERS FOR PT,OT/BATH AID. THEY STATE UNDERSTANDING THAT THEY WILL BE CONTACTED AT HOME TO ARRANGE TIME FOR THEM TO COME. GAVE THEM OPTIONS OF HOME HEALTH AGENCIES. THEY REQUEST [facility]. DAUGHTER STATES THEY HAVE ALL THEY NEED AT THIS TIME FOR HIS CARE, THEY HAVE A WALKER AT HOME. NO OTHER QUESTIONS OR CONCERNS.
--- NOTE | 2018-02-15 14:51 | NUR ---
CLINICALS, ORDER FAXED TO [facility] [phone]. FAX CONFIRMATION RECEIVED 02/15/18 218PM. CALLED AND SPOKE WITH GABY AT [facility], WHO STATES THEY DID RECEIVE PACKET.
== END 2018-02-15 13:10 | disposition home health service (06) ==
LOC: ED 18:57 → MS 18:58
PROVIDERS: ADMIT Student in an Organized Health Care Education/Training Program
DX: N39.0 Urinary tract infection, site not specified (principal); K59.00 Constipation, unspecified; I10 Essential (primary) hypertension; E11.65 Type 2 diabetes mellitus with hyperglycemia; I48.91 Unspecified atrial fibrillation; G93.41 Metabolic encephalopathy; I25.2 Old myocardial infarction; I69.951 Hemiplegia and hemiparesis following unspecified cerebrovascular disease affecting right dominant side; I69.920 Aphasia following unspecified cerebrovascular disease; F39 Unspecified mood [affective] disorder; F03.90 Unspecified dementia, unspecified severity, without behavioral disturbance, psychotic disturbance, mood disturbance, and anxiety; E78.5 Hyperlipidemia, unspecified; K21.9 Gastro-esophageal reflux disease without esophagitis; R39.15 Urgency of urination; Z66 Do not resuscitate; Z79.01 Long term (current) use of anticoagulants; Z79.82 Long term (current) use of aspirin; Z85.828 Personal history of other malignant neoplasm of skin; Z95.2 Presence of prosthetic heart valve; Z95.0 Presence of cardiac pacemaker; Z79.899 Other long term (current) drug therapy
CPT/HCPCS: 36415; 71045; 80048; 80053; 81001; 83036; 83735; 84484; 85025; 85610; 85730; 87088; 93005; 93010; 94762; 96361; 96365; 96366; 96374; 96375; 96376; 97163; 97166; 99285-25; G0378; J0696; J1815; J3480; J7120

== ENCOUNTER 2018-05-11 22:01 | Observation (INO) | payer MEDICARE ==
[~2018-05-11] VITALS: Ht 165.1 cm; Wt 69.9 kg
[~2018-05-11 22:01] MED LIST changes: +ANIMAL CHEWS1 EACH PO; +ASPIR-LOW81 MG PO; +BLOOD GLUCOSE1 EAC1 MISC; +BLOOD LANCETS1 EACH SUB-Q; +CALCIUM500 M1 PO; +CEPHALEXIN500 MG PO; +GLUCOSE TEST S1 EACH MISC; +METFORMIN HCL500 MG PO; +PROBIOTIC1 EAC7 PO; +TOPROL XL100 MG PO; +XARELTO10 MG PO; +XARELTO15 MG PO
--- NOTE | 2018-05-12 01:50 | NUR ---
PATIENT ARRIVED VIA STRETCHER. FULL ASSIST TO TRANSFER TO BED. PATIENT OPENS EYES TO SOUND BUT DOES NOT APPEAR TO COMPREHEND SPEECH AND HAS NO VERBAL RESPONCE. PATIENT IS STIFF IN POSTURE AND RESPONDS MINIMALLY TO PAINFUL STIMULI. BREATHING IS IRREGULAR AND SHALLOW. VS STABLE. PATIENT'S SKIN COLD TO THE TOUCH. CAP REFILL >3 SECONDS. PUPILS HAVE SLUGGISH RESPONCE TO LIGHT. PATIENT INCONTINENT OF URINE, ATTENDS IN PLACE. IV FLUIDS PER ORDER. PATIENT IN DIRECT SIGHT OF NURSES STATION FOR FRQUENT MONITORING.
--- NOTE | 2018-05-12 03:14 | NUR ---
PATIENT RESTING IN BED. APPEARS COMFORTABLE. RR 20 AND SHALLOW. PATIENT LOOKS AT RN WHEN HIS NAME IS SAID BUT DOES NOT RESPOND. IV FLUIDS PER CHAGO, ALFA WNL. ATTENDS ARE DRY. PATIENT REPOSITIONED FOR COMFORT.
--- NOTE | 2018-05-12 04:15 | NUR ---
PATIENT REPOSITIONED FOR COMFORT. PATIENT LOOKS AT STAFF BUT MAKES NO NOISE OR REACTION TO QUESTIONS. PATIENT'S ATTEND HAS NO URINE BUT SMALL BM. VICENTE CARE DONE. IV FLUIDS PER ORDER, SITE WNL.
--- NOTE | 2018-05-12 05:33 | NUR ---
QUARTZ ORIENTATOR CHANGED PATIENT'S ATTEND WHERE HE HAD ANOTHER SMALL BM BUT NO URINE OUTPUT. BLADDER SCAN FOR 200MLS. WILL CONTINUE TO MONITOR. IV FLUIDS PER ORDER.
--- NOTE | 2018-05-12 06:11 | NUR ---
SPOKE TO DR. RIOS ABOUT NO URINE OUTPUT. ORDERS FOR CHAHAL PLACEMENT RECEIVED. VERIFIED PATIENT IS TO BE ON COMFORT CARE PER POLICY.
--- NOTE | 2018-05-12 06:16 | NUR ---
PATIENT HAS BEEN UNRESPONSIVE SINCE ARRIVAL TO THE FLOOR. PATIENT MAKES BLANK EYE CONTACT WHEN SPOKEN TO BUT MAKES NO KIND OF RESPONCE. VS STABLE. NO URINE OUTPUT, CHAHAL CATH TO BE PLACED THIS AM. PATIENT ON COMFORT CARE WITH MINIMAL INTERVENTIONS. ORAL CARE AND TURN Q2H. NPO FOR ASPIRATION PRECAUTION. PATIENT HAS SMALL BM. SKIN GROSSLY INTACT. IV FLUIDS PER ORDER. NO PRN MEDS REQUIRED THIS SHIFT.
--- NOTE | 2018-05-12 06:56 | NUR ---
DIFFICULT PLACEMENT OF NORMAL CHAHAL CATH, COUDE CATH USED. 100MLS URINE WITH PLACEMENT. PATIENT HAS NO RESPONCE TO PLACEMENT. SENIOR WEB ENGINEER ASSISTED IN VICENTE CARE PRE AND POST PLACEMENT. PATIENT POSITIONED FOR COMFORT.
--- NOTE | 2018-05-12 07:04 | NUR ---
RECIEVED BEDSIDE REPORT FROM CHUCK MULLEN. PT IN BED. OPENED EYES TO TOUCH TO SHOULDER AND VERBAL PROMPT. TRACKED WITH EYES.
--- NOTE | 2018-05-12 07:57 | NUR ---
PT IN BED, EYES OPEN, LOOKS AT STAFF, TRACKS WITH EYES. NO VERBAL RESPONSE. NO S/S DISTRESS OR DISCOMFORT. PT TURNED ONTO RIGHT SIDE WITH PILLOW UNDER LEFT HIP, RIGHT ELBOW. HEEL PROTECTORS ON. SKIN GROSSLY INTACT. URINE CATHETER IN PLACE, DRAINING SLIGHTLY CLOUDY, YELLOW URINE. HAS LR INFUSING AT 125 ML/HR. ORAL CARE PROVIDED, MOUTH SWABBED, CHAPSTICK APPLIED TO LIPS.
--- NOTE | 2018-05-12 08:20 | NUR ---
PATING IN BED, OPENS EYES TO NAME BRIEFLY. NO VERBAL RESPONSES. WILL CONTACT FAMILY.
--- NOTE | 2018-05-12 10:18 | NUR ---
SPOKE WITH PATIENTS DAUGHTER CHARLY REBOLLAR [phone] BY PHONE. DISCUSSED POSSIBLE PLANS FOR DISCHARGE. SHE IS INTERESTED IN HOSPICE. WE DISCUSSED OPTIONS IN THE AREA FOR HOSPICE PROGRAMS. SHE STATES HER SISTER USED TO WORK FOR HOSPICE IN [place] AND SHE WANTS TO CALL AND TALK WITH HER BEFORE MAKING ANY DECISIONS. WE DISCUSSED MEETING LATER TODAY WHEN SHE COMES TO THE HOSPITAL. QUESTIONS ANSWERED.
--- NOTE | 2018-05-12 13:13 | NUR ---
PT IN BED, OPENS EYES TO VERBAL STIMULI. NO VERBAL RESPONSE, DOES NOT FOLLOW COMMANDS. NO S/S DISTRESS OR DISCOMFORT NOTED. PT HAD SMALL AMOUNT OF BLOODY DRAINAGE FROM URETHRA AROUND CATHETER, DR. RIOS NOTIFIED OF THIS. COUDE CATHETER PLACED EARLY THIS AM.
--- NOTE | 2018-05-12 14:53 | NUR ---
PT'S DAUGHTER AT BEDSIDE. PT IN BED, EYES OPEN. NO VERBAL RESPONSE, NOT FOLLOWING COMMANDS.
--- NOTE | 2018-05-12 15:32 | EKG ---
[facility] [address] [facility] [place] [address] Signed Atrial fibrillation with premature ventricular or aberrantly conducted complexes Nonspecific ST and T wave abnormality Prolonged QT Abnormal ECG When compared with ECG of 19-APR-2018 14:28, Nonspecific T wave abnormality no longer evident in Anterior leads QT has lengthened Confirmed by FAUSTINO IROS DO ([id number]) on 05/12/2018 3:32:28 PM Electronically Signed By: FAUSTINO RIOS DO 05/12/18 1532 PATIENT NAME: CHRISTOPHERNICOLASA Electrocardiogram DATE OF : 32 PHYSICIAN: FAUSTINO RIOS DO REPORT #: [id number] REPORT IS CONFIDENTIAL AND NOT TO BE RELEASED WITHOUT AUTHORIZATION
--- NOTE | 2018-05-12 15:59 | NUR ---
SPOKE WITH DAUGHTER CHARLY IN ROOM. SHE STATES SHE SPOKE WITH HER SISTER AND THEY ARE LOOKING AT HOSPICE WITH [facility]. SHE STATES HER SISTER IS TRAVELING HERE, AND SHE WANTS TO WAIT TO CONTACT [facility] UNTIL HER SISTER IS HERE. WE DID DISCUSS THE HOSPICE PROGRAM. SHE DOES INTEND TO BE PRIMARY CAREGIVER 01/09 AND DOES HAVE HELP FROM HER BOYFRIEND WHO LIVES IN THE HOME ALSO AND OTHER FAMILY. SHE IS AWARE THAT EQUIPMENT CAN BE SUPPLIED BY HOSPICE. OTHER QUESTIONS WERE ANSWERED TO HER SATISFACTION. STAFF UPDATED.
--- NOTE | 2018-05-12 17:44 | NUR ---
PT IN BED, EYES OPEN, DOES NOT FOLLOW COMMANDS. NO S/S DISTRESS OR DISCOMFORT NOTED.
--- NOTE | 2018-05-12 17:57 | NUR ---
PT OPENS EYES TO VERBAL STIMULI/TOUCH, AND TRACKS FACES WITH HIS EYES, BUT NO VERBAL RESPONSE. PT DOES NOT FOLLOW COMMANDS. HAS LR INFUSING AT 125 ML/HR. URINE CATHETER IN PLACE TO GRAVITY DRAINAGE. NPO DUE TO ASPIRATION RISK. PT TURNED EVERY 2 HOURS/PRN, WITH ORAL CARE AT THESE TIMES.
--- NOTE | 2018-05-12 19:03 | NUR ---
RECIEVED BEDSIDE REPORT FROM AIDE WOODS. PATIENT LAYING IN BED WITH EYES CLOSED, RESPIRATORY RATE IS EVEN AND UNLABORED. IV FLUIDS INFUSING PER MAR ORDER. WHITE BOARD UPDATED.
--- NOTE | 2018-05-12 19:30 | NUR ---
PATIENT IS RESTING,NO NEEDS AT THIS TIME
--- NOTE | 2018-05-12 21:00 | NUR ---
ASSESSMENT COMPLETE, REFER TO ASSESSMENT. PATIENT OPENS EYES TO PHYSICAL TOUCH, SLIGHTLY TO SOUND. WOOD GRINDER PERFORMED ORAL CARE AND PARTIAL BED BATH. REPOSITIONED PATIENT IN BED. PATIENT SHOWS NO SIGNS OF TENSING OR GRIMACING. PATIENT RESPIRATORY RATE IS SHALLOW BUT EVEN AND UNLABORED WITH EPISODES OF IRREGULARITY, NO SIGNS OF DISTRESS. BED ALARM ON FOR SAFETY. MEDICATIONS ADMINISTERED PER MAR ORDER. NO MORE NEEDS AT THIS TIME. PATIENT APPEARS RESTFUL.
--- NOTE | 2018-05-12 23:30 | NUR ---
ROUNDED ON PATIENT RESTING IN BED WITH EYES CLOSED, RESPIRATORY RATE IS EVEN AND UNLABORED. NO SIGNS OF DISTRESS. NO SIGNS OF TENSING OR GRIMACING. BED ALARM ON FOR SAFETY. IV FLUIDS STILL INFUSING PER MAR ORDER. NO MORE NEEDS AT THIS TIME.
--- NOTE | 2018-05-13 01:01 | NUR ---
ROUNDED ON PATIENT RESTING IN BED WITH EYES OPEN, RESPIRATORY RATE IS EVEN AND UNLABORED. NO SIGNS OF TENSING, GRIMACING OR DISTRESS. CHAPSTICK APPLIED. REPOSITIONED PATIENT IN BED. IV FLUIDS STILL INFUSING PER MAR ORDER. NO MORE NEEDS AT THIS TIME.
--- NOTE | 2018-05-13 02:39 | NUR ---
ROUNDED ON PATIENT RESTING IN BED WITH EYES CLOSED, RESPIRATORY RATE IS EVEN AND UNLABORED. NO SIGN OF TENSING OR GRIMACING. PATIENT APPEARS TO BE RESTING COMFORTABLY. BED ALARM ON FOR SAFETY.
--- NOTE | 2018-05-13 04:40 | NUR ---
ASSESSMENT COMPLETE, REFER TO ASSESSMENT. PRN PAIN MEDICATION ADMINISTERED PER APR ORDER FOR COMFORT DUE TO PATIENT APPEARANCE OF HAVING RESPIRATORY DISCOMFORT, CONSULTED WITH ALEMITE OPERATOR, SEBAS. PATIENT ABLE TO OPEN MOUTH FOR MEDICATION ADMINISTRATION AFTER INSTRUCTION. PATIENT ABLE TO MOVE HEAD TO LOOK AT THIS RN DURING ASSESSMENT, HOWEVER NO VERBAL RESPONSE PRODUCED. HEEL PROTECTORS IN PLACE. BED ALARM ON FOR SAFETY. NO MORE NEEDS AT THIS TIME.
--- NOTE | 2018-05-13 06:18 | NUR ---
PATIENT IS RESTING. ORAL CARE WAS DONE VITALS DONE. NO OTHER NEEDS AT THIS TIME.
--- NOTE | 2018-05-13 06:53 | NUR ---
rounded on patient resting in bed with eyes closed, respiratory rate is even and unlabored. patient shows no signs of tensing or grimacing. bed alarm on for safety.
--- NOTE | 2018-05-13 07:31 | NUR ---
RECEIVED REPORT FROM SHRIMPING BOAT CAPTAIN RN. PT IN BED WITH EYES CLOSED. RESPIRATIONS ARE 16. LR AT [address] WITH CLEAR YELLOW URINE. VISIBLE FROM NURSING STATION. PT IS RELAXED.
--- NOTE | 2018-05-13 07:40 | NUR ---
PATIENT RESTING IN BED. ORAL CARE DONE. CALL LIGHT WITHIN REACH. NO OTHER NEEDS AT THIS TIME
--- NOTE | 2018-05-13 08:59 | NUR ---
2PA TO REPOSITION PT TO LEFT SIDE. ATTENDS CHECK AND DRY. MOUTH CARE DONE BY WENDIE RASHEED. LR AT 125. PT LYING IN BED SITH EYES OPEN. PT UNABLE TO FOLLOW COMMANDS. RESPIRAIOTNS NONLABORED. PT APPREARS RELAXED.
--- NOTE | 2018-05-13 09:10 | NUR ---
PATIENT RESTING IN BED. PATIENT REPOSITIONED ON HIS LEFT SIDE. TWO PERSON ASSISTING. ORAL CARE DONE. VITAL SIGNS AND I&O DONE. CALL LIGHT WITHIN REACH. NO OTHER NEEDS AT THIS TIME
--- NOTE | 2018-05-13 09:46 | NUR ---
SPOKE WITH DAUGHTER CHARLY REBOLLAR [phone] BY PHONE. SHE STATES HER SISTER IS CALLING [facility]GRAM THIS MORNING AND THEY ARE HOPEFULLY GETTING EQUIPMENT LATER TODAY FOR DISCHARGE TO HOME HOSPICE TOMORROW. I DISCUSSED THAT I WILL CHECK WITH [facility] AND SEND CLINICALS AND ORDER NEEDED. SHE AGREES WITH THIS. QUESTIONS ANSWERED. WILL CONTINUE TO FOLLOW. STAFF UPDATED.
--- NOTE | 2018-05-13 10:36 | NUR ---
PATIENT RESTING IN BED. BEDBATH DONE. ORAL CARE DONE. CATHETER CARE DONE. WARM BLANKET PROVIDED. CALL LIGHT WITHIN REACH. NO OTHER NEEDS AT THIS TIME
--- NOTE | 2018-05-13 11:00 | NUR ---
2PA TO REPOSITION TO RIGHT SIDE. PT APPEARS COMFORTABLE VISIBLE FROM NURSING STATION.
--- NOTE | 2018-05-13 11:06 | NUR ---
PATIENT RESTING IN BED. PATIENT REPOSITIONED TO THE RIGHT SIDE. TWO PERSON ASSISTING. CALL LIGHT WITHIN REACH. NO OTHER NEEDS AT THIS TIME
--- NOTE | 2018-05-13 13:16 | NUR ---
PATIENT RESTING IN BED. PATIENT REPOSITIONED ON HIS LEFT SIDE. TWO PERSON ASSISTING. ORAL CARE DONE. I&O DONE. CALL LIGHT WITHIN REACH. NO OTHER NEEDS AT THIS TIME
--- NOTE | 2018-05-13 15:00 | NUR ---
FAXED TO [facility] [phone] HOSPICE CONSULT. CONFIRMATION RECEIVED AT 316PM. CALLED [phone] AND SPOKE WITH ROGER. DISCUSSED THAT CARITO REBOLLAR IS WAITING FOR HER SISTER TO ARRIVE FROM [place] AND THEY WILL CONTACT THEM REGARDING WHAT IS NEEDED. SHE WILL REVIEW CHART AND GET AUTHORIZATIONS.
--- NOTE | 2018-05-13 16:19 | NUR ---
SPOKE WITH DAUGHTER CHARLY REBOLLAR BY PHONE [phone] WHO STATES HER SISTER DID NOT GET [facility] OF HOSPICE YET, SHE DID NOT HAVE TIME BEFORE HER FLIGHTS SHE HOPED. THEY STILL INTEND ON USING [facility]. DISCUSSED THAT I SENT CLINICALS AND REQUEST AHEAD FOR THEM TO WORK ON AUTHORIZATION. SHE STATES THEY WILL CONTACT THEM TOMORROW MORNING AND SHE STATES SHE IS HOPING TO GET PT HOME TOMORROW. QUESTIONS ANSWERED. STAFF UPDATED.
--- NOTE | 2018-05-13 18:13 | NUR ---
2PA TO REPOSITION TO LEFT SIDE. ORAL CARE DONE. VISIBLE FROM NURSING STATION. PT STILL NONVERBAL. UNABLE TO FOLLOW COMMANDS. VISIBLE FROM NURSING STATION. LR AT 125. IV SITE WNL.
--- NOTE | 2018-05-13 18:16 | NUR ---
PT HERE ON COMFORT CARE. ORAL AND TURN Q2H. LR AT 125ML/HR. CHAHAL WITH QS URINE OUTPUT. NPO D/T ASPERATION RISK. MORPHINE FOR DISCOMFORT. PT WITH NO DOSES THIS SHIFT.
--- NOTE | 2018-05-13 19:10 | NUR ---
IN ROOM FOR REPORT, PT IS RESTING WITH EYES CLOSED. RR IS EVEN AND NONLABORED. CALL LIGHT IS WITHIN REACH.
--- NOTE | 2018-05-13 20:33 | NUR ---
REPOSITIONED PT AND ASSESSED HIM. HE DOES IS NONVERBAL AT THIS TIME BUT HE WILL FOLLOW YOU WITH HIS EYES. HE MOVES HIS ARMS ABOUT BUT DOES NOT FOLLOW COMMANDS. CATH CARE AND ORAL CARE PROVIDED. CALL LIGHT IS WITHIN REACH.
--- NOTE | 2018-05-13 22:20 | NUR ---
IN ROOM TO ADMINISTER IV MORPHINE. PT IS LAYING AWAKE IN BED WITH, WHEN ASKED QUESTIONS HE MOANS A LITTLE. HIS ARMS ARE DRAWN UP CLOSE TO HIS BODY. ALSO HIS BREATHING IS A LITTLE IRREGULAR AT THIS TIME. CALL LIGHT IS CLOSE.
--- NOTE | 2018-05-13 23:32 | NUR ---
PT IS RESTING WITH EYES CLOSED, RESPIRATIONS ARE EVEN AND NONLABORED. CALL LIGHT IS WITHIN REACH.
--- NOTE | 2018-05-14 00:32 | NUR ---
PT IS RESTING WITH EYES CLOSED, RESPIRATIONS VISUALIZED. CALL LIGHT IS CLOSE.
--- NOTE | 2018-05-14 02:14 | NUR ---
PT IS RESTING WITH EYES CLOSED, RESPIRATIONS VISUALIZED. CALL LIGHT IS WITHIN REACH.
--- NOTE | 2018-05-14 03:30 | NUR ---
SHANDRA LOZANO REPOSITION PT IN BED. BEDSIDE TABLE AND CALL LIGHT IN REACH.
--- NOTE | 2018-05-14 03:30 | NUR ---
ADMINISTERED MORPHINE FOR PAIN/EASE OF BREATHING. REPOSITIONED PT AND CHECKED FOR BM. PT TRIED SAYING SOMETHING AND CAME OUT GARBLED. ORAL CARE AND CHAPSTICK PROVIDED. CALL LIGHT IS CLOSE AND PT IS CLOSE TO NURSES STATION. IV FLUID IS INFUSING.
--- NOTE | 2018-05-14 04:40 | NUR ---
PT IS RESTING WITH EYES CLOSED, RESPIRATIONS VISUALIZED. CALL LIGHT IS CLOSE AND PT IS CLOSE TO NURSES STATION. IV IS INFUSING WNL.
--- NOTE | 2018-05-14 05:15 | NUR ---
VITALS AND I&OS DONE AND CHARTED. WENDIE LORENZO DID ORAL CARE FOR HIM. BEDSIDE TABLE AND CALL LIGHT IN REACH.
--- NOTE | 2018-05-14 05:30 | NUR ---
PT IS RESTING WITH EYES CLOSED, RESPIRATIONS VISUALIZED. CALL LIGHT IS CLOSE AND ROOM IS CLOSE TO NURSES STATION.
--- NOTE | 2018-05-14 05:31 | NUR ---
PT SLEPT THROUGH MOST OF THE NIGHT. HE WAS GIVEN IV MORPHINE A COUPLE TO TIMES FOR PAIN/ EASE OF BREATHING. VS ARE WNL AND HE HAS LR INFUSING AT 125. CHAHAL IS IN PLACE AND HE IS URINATING QS. ORAL CARE AND TURNING PROVIDED Q2 OR PRN. PT IS NONVERBAL BUT HE DID MUMBLE WORDS AT ONE POINT.
--- NOTE | 2018-05-14 06:17 | NUR ---
PT SEEMED UNCOMFORTABLE AND WAS MOANING IN HIS SLEEP. ADMINISTERED IV MORPHINE AND SUCTIONED IN HIS MOUTH. CALL LIGHT IS CLOSE AND PT IS NEAR NURSES STATION.
--- NOTE | 2018-05-14 07:15 | NUR ---
REPORT RECEIVED FROM SALT WASHER RN. PT IN BEDWITH EYES CLOSED. RESPIRAITONS 16. LR AT 125 INFUSING. VISIBLE FROM NURSINGSTATION.
--- NOTE | 2018-05-14 07:30 | NUR ---
PATIENT RESTING IN BED. FACE CLEANED. ORAL CARE DONE. CALL LIGHT WITHIN REACH. NO OTHER NEEDS AT THIS TIME
--- NOTE | 2018-05-14 08:03 | NUR ---
PATIENT RESTING IN BED. BEDBATH DONE. PATIENT USING A CLEAN GOWN. CALL LIGHT WITHIN REACH. NO OTHER NEEDS AT THIS TIME
--- NOTE | 2018-05-14 09:09 | NUR ---
PATIENT RESTING IN BED. VITAL SIGNS AND I&O DONE. CALL LIGHT WITHIN REACH. NO OTHER NEEDS AT THIS TIME
--- NOTE | 2018-05-14 10:39 | NUR ---
REPOSITIONED PT. RESPIRAITONS 16, NO GRIMASING, SKIN DRY, FACIAL EXPRESSION RELAXTED, NO MOANING. FLUIDS DC'D PER ORDER AND FAMILY WISHES. VISIBLE FROM NURSING STATION. FAMILY AT BEDSIDE.
--- NOTE | 2018-05-14 11:00 | NUR ---
PT REPOSITIONED. MOUTH CARE PROVIDED. MORPHINE ADMINISTERED FOR VISIBLE DICOMFORT (SEE MAR). VISIBLE FROM NURSING STATION.
--- NOTE | 2018-05-14 11:48 | NUR ---
PATIENT RESTING IN BED. ORAL CARE DONE. CALL LIGHT WITHIN REACH. NO OTHER NEEDS AT THIS TIME
--- NOTE | 2018-05-14 12:24 | NUR ---
PT LAYING IN BED, REALLY UNABLE TO COMMUNICATE. HIS DAUGHTERS WERE IN THE RM, CHARLY AND ROSEANNE. WAITING FOR DC ORDERS THRU HOSPOCE. THEY BOTH MENTIIONED THAT PT HAD GIVEN THEM CLEAR END OF LIFE DIRECTIONS THAT HAS MADE THIS PROCESS EASIER. EXTENDED A BLESSING, WILL FOLLOW NEEDED
--- NOTE | 2018-05-14 12:56 | NUR ---
CALLED AND SPOKE WITH CHARLY--PT DAUGHTER AT [phone], SHE STATED THAT SHE HAD CALLED [facility] AND THEY WERE ORDERING THE BED AND THINGS. I ASKED IF THERE WERE ANYTHING ELSE WE COULD DO, DAUGHTER STATED NO THERE IS NO THING MORE THAT WE CAN DO. I CALLED AND TALKED WITH ROGER AT [facility] AND SHE STATED THAT THEY ORDERED THE BED AND STUFF, IT WILL BE DELIVERED WITH THIS AFTERNOON OR IN THE MORNING. SHE ASKED WHAT TIME TOMORROW WOULD HE BE SENT HOME. INFORMED HER THAT THAT WOULD BE UP TO THE DR AND THE PT FAMILY. SHE ASKED THAT WHEN THE NURSES KNOW TO PLEASE CALL THE [facility]OS[facility] NURSE AT [phone]. INFORMATION COMMUNICATED TO THE RNS ON DUTY BOTH JOSAFAT RANDLE AND PT RN MELECIO.
--- NOTE | 2018-05-14 13:10 | NUR ---
PATIENT RESTING IN BED. PATIENT REPOSITIONED ON HIS RIGHT SIDE. TWO PERSON ASSISTING. CALL LIGHT WITHIN REACH. NO OTHER NEEDS AT THIS TIME
--- NOTE | 2018-05-14 13:12 | NUR ---
PATIENT RESTING IN BED. I&O DONE. ORAL CARE DONE. CALL LIGHT WITHIN REACH. NO OTHER NEEDS AT THIS TIME
--- NOTE | 2018-05-14 15:20 | NUR ---
PATIENT RESTING IN BED. PATIENT REPOSITONED ON HIS LEFT SIDE. TWO PERSON ASSISTING. ORAL CARE DONE. PATIENT TRIED TO TALK. CALL LIGHT WITHIN REACH. NO OTHER NEEDS AT THIS TIME
--- NOTE | 2018-05-14 16:00 | NUR ---
PT REPOSITIONED. MOUTH CARE PROVIDED. SIPS OF WATER PROVIDED. PT W/O COUGHING. MORPHINE ADMINSITERED FOR DISCOMFORT (SEE MAR). [facility].
--- NOTE | 2018-05-14 17:29 | NUR ---
PATIENT RESTING IN BED. I&O DONE. ORAL CARE DONE. CALL LIGHT WITHIN REACH. NO OTHER NEEDS AT THIS TIME
--- NOTE | 2018-05-14 18:00 | NUR ---
PT REPOSITIONED. MOUTH CARE PROVIDED. SIPS OF WATER PROVIDED. MORPHINE FOR DISCOMFORT (SEE MAR). VISIBLE FROM NURSING STATION.
--- NOTE | 2018-05-14 19:01 | NUR ---
RECIEVED BEDSIDE REPORT FROM MELECIO WOODS. PATIENT RESTING IN BED WITH EYES CLOSED, RESPIRATORY RATE IS EVEN AND UNLABORED. PATIENT SHOWS NO SIGN OF TENSING OR GRIMACING. WHITE BOARD UPDATED. NO MORE NEEDS AT THIS TIME.
--- NOTE | 2018-05-14 21:50 | NUR ---
ASSESSMENT COMPLETE, REFER TO ASSESSMENT. ASKED PATIENT IF PATIENT HAS PAIN, PATIENT STATED "NO", NO SIGNS OF TENSING OR GRIMACING. PATIENT MAKES EYE CONTACT WHEN SPOKEN TO, HOWEVER PATIENT DIDN'T EXPRESS ANY OTHER VERBAL RESPONSES DURING ASSESSMENT. CATHETER CARE PERFORMED. PATIENT REFUSED MOUTH SWABS, HOWEVER CHAPSTICK APPLIED. REPOSITIONED PATIENT IN BED. ELBOW AND HEEL PROTECTORS IN PLACE. NEW ATTENDS PLACED. CALL LIGHT WITHIN REACH.
--- NOTE | 2018-05-14 22:25 | NUR ---
I assisted CHUCK Walton with a brief change and readjustment in bed. He tolerated this well.
--- NOTE | 2018-05-14 22:25 | NUR ---
I&O's were complete. VS are being DCed due to Comfort Care measures.
--- NOTE | 2018-05-14 23:10 | NUR ---
patient was making grunting noises so i peeked in to check on him and offered mouth care but he pursed his lips closed. CHUCK Walton notified.
--- NOTE | 2018-05-15 00:20 | NUR ---
PT WAS MAKING GRUNTING/MOANING NOISES. REPOSITIONED PT ALONG WITH CHUCK MEEHAN.
--- NOTE | 2018-05-15 00:25 | NUR ---
ASSESSED PT'S PAIN ALONG WITH RN ZORAN. PT NODDED HIS HEAD ONCE WHEN ASKED IF HE WAS IN PAIN. ALSO TRIED TO HAVE HIM SQUEEZE OUR HANDS IF HE WANTED PAIN MEDICINE AND PT DID SQUEEZE OUR HANDS. ADMINISTERED 5MG SL MORPHINE. PT IS CLOSE TO NURSES STATION AND CALL LIGHT IS CLOSE.
--- NOTE | 2018-05-15 02:10 | NUR ---
ROUNDED ON PATIENT RESTING IN BED WITH EYES CLOSED, RESPIRATORY RATE IS EVEN AND UNLABORED. NO SIGN OF TENSING OR GRIMACING. PATIENT APPEARS TO BE RESTING COMFORTABLY IN BED. PATIENT AWOKE WHEN SPOKEN TO AND MADE EYE CONTACT. CHAPSTICK APPLIED. REPOSITIONED PATIENT IN BED. CALL LIGHT WITHIN REACH.
--- NOTE | 2018-05-15 03:28 | NUR ---
ROUNDED ON PATIENT RESTING IN BED WITH EYES CLOSED, RESPIRATORY RATE IS EVEN AND UNLABORED. NO SIGN OF TENSING OR GRIMACING. PATIENT APPEARS TO BE RESTING IN BED COMFORTABLY. CALL LIGHT WITHIN REACH.
--- NOTE | 2018-05-15 04:41 | NUR ---
rounded on patient resting in bed with eyes closed, respiratory rate is even and unlabored. patient awoke to being repositioned. chapstick applied. patient shows no sign of tensing or grimacing. patient appears to be resting comfortably in bed. call light within reach.
--- NOTE | 2018-05-15 05:00 | NUR ---
patients herrera was emptied, he seemed to be resting soundly.
--- NOTE | 2018-05-15 06:13 | NUR ---
COMFORT CARE PATIENT. BEDBOUND. ROOM AIR. PATIENT VERBALIZED THE WORD "NO" X1 THIS SHIFT. NPO. CHAHAL CATHETER, CATH CARE PERFORMED. NO VITAL SIGNS PER ORDER. PATIENT MOSTLY NON VERBAL. ATTENDS IN PLACE. ELBOW AND HEEL PROTECTORS.
--- NOTE | 2018-05-15 07:15 | NUR ---
REPORT RECEIVED FROM CHUCK MEEHAN. PT RESTING WITH EYES CLOSED, RR = 18 BPM. BED RAILS UP. CALL LIGHT WITHIN REACH. CURTAIN OPEN FOR EASY VIEWING FROM NURSES STATION.
--- NOTE | 2018-05-15 08:00 | NUR ---
PATIENT RESTING IN BED. ORAL CARE DONE. CALL LIGHT WITHIN REACH. NO OTHER NEEDS AT THIS TIME
--- NOTE | 2018-05-15 08:45 | NUR ---
THIS RN TO ROOM TO CHECK ON PT. PT GROANING. FACES PAIN SCALE SHOWS 5/10 PAIN. SEE MAR FOR MEDICATION GIVEN. PT TURNED TO LEFT SIDE. DEPENDS SOILED WITH SMALL BROWN SMEAR, DEPENDS CHANGED, VICENTE CARE DONE. BARRIER CREAM APPLIED. ASSESSMENT DONE. PT RESTING IN BED WITH EYES CLOSED, RR = 24 BPM. BED RAILS UP. CALL LIGHT WITHIN REACH. CUTRAIN OPEN FOR EASY VIEWING FROM NURSES STATION.
--- NOTE | 2018-05-15 09:18 | NUR ---
PATIENT RESTING IN BED. VITAL SIGNS AND I&O DONE. CALL LIGHT WITHIN REACH. NO OTHER NEEDS AT THIS TIME
--- NOTE | 2018-05-15 09:47 | NUR ---
THIS RN TO ROOM TO CHECK ON PT. PT TURNED, NOW RESTING ON BACK. PT RESTING WITH EYES CLOSED, RR = 24 BPM. FACES SCALE SHOWS 1/10. BED RAILS UP. CALL LIGHT WITHIN REACH. CURTAIN OPEN FOR EASY VIEWING FROM NURSES STATION.
--- NOTE | 2018-05-15 10:22 | NUR ---
PATIENT RESTING IN BED. BEDBATH DONE. ORAL CARE DONE. PATIENT REPOSITIONED ON HIS RIGHT SIDE. PATIENT USING A CLEAN GOWN. CALL LIGHT WITHIN REACH. NO OTHER NEEDS AT THIS TIME
--- NOTE | 2018-05-15 10:39 | NUR ---
PT FINSHED WITH BED BATH. PT APPEARS RESTLESS, GROANING NOTED. FACES PAIN SCALE SHOWS 5/10. SEE MAR FOR MEDICATION GIVEN. BED RAILS UP. CALL LIGHT WITHIN REACH. CURTAIN OPEN FOR EASY VIEWING FROM NURSES STATION.
--- NOTE | 2018-05-15 11:17 | NUR ---
THIS RN TO ROOM TO CHECK ON PT. SNORING NOTED. PT OPENS EYES TO VOICE AND MOVEMENT IN ROOM. PT REPOSITIONED TO LEFT SIDE. SNORING STOPPS. PT APPERS RELAXED. BED RAILS UP. CALL LIGHT WITHIN REACH. CURTAIN OPEN FOR EASY VIEWING FROM NURSES STATION.
--- NOTE | 2018-05-15 12:13 | NUR ---
[facility] CALLED TO TAKE PT HOME. PIV DC'D PER PROTOCOL. GAUZE AND COBAN APPLIED. NO VITAL SIGNS TAKEN PER MD ORDER AND FAMILY PREFERENCE. PAIN MEDICAITON GIVEN IN ANTICIPATION OF TRANPORT (SEE MAR). CLEAN DEPENDS PLACED. CHAHAL CATHETER LEFT IN PLACE PER MD ORDER. REPORT GIVEN TO TRANSPORT PERSONELL. QUESTIONS ASKED AND ANSWERED. PT TRANSFERED TO [facility] ([facility]). ALL BELONGINGS WITH PT. FAMILY AND HOSPICE INFOMRED BY CHUCK RANDLE, THAT PT IS ON HIS WAY HOME.
== END 2018-05-15 12:25 | disposition hospice, home (50) ==
LOC: ED 22:01 → MS 22:02
PROVIDERS: ADMIT Student in an Organized Health Care Education/Training Program
DX: I62.9 Nontraumatic intracranial hemorrhage, unspecified (principal); I48.2 Chronic atrial fibrillation; F03.90 Unspecified dementia, unspecified severity, without behavioral disturbance, psychotic disturbance, mood disturbance, and anxiety; N39.0 Urinary tract infection, site not specified; E11.9 Type 2 diabetes mellitus without complications; N17.9 Acute kidney failure, unspecified; I69.951 Hemiplegia and hemiparesis following unspecified cerebrovascular disease affecting right dominant side; R40.2362 Coma scale, best motor response, obeys commands, at arrival to emergency department; R40.2142 Coma scale, eyes open, spontaneous, at arrival to emergency department; R40.2222 Coma scale, best verbal response, incomprehensible words, at arrival to emergency department; Z51.5 Encounter for palliative care; Z95.0 Presence of cardiac pacemaker; Z95.2 Presence of prosthetic heart valve; Z79.01 Long term (current) use of anticoagulants; Z79.84 Long term (current) use of oral hypoglycemic drugs; Z79.82 Long term (current) use of aspirin; Z79.899 Other long term (current) drug therapy
CPT/HCPCS: 51701; 51703; 70450; 71045; 80053; 81001; 83880; 84484; 85025; 85610; 85730; 87088; 93005; 93010; 96361; 96375; 96376; 99285-25; G0378; J0696; J2270; J7120